=== PATIENT | female | born 1955 | race Caucasian/White ===

== ENCOUNTER 2017-05-06 09:28 | Emergency (ER) | payer OTHER ==
[2017-05-06] MEDS ORDERED: ACETAMINOPHEN 325 MG TABLET PO ONE (10:06)
--- NOTE | 2017-05-06 10:20 | ER Document Report ---
ED Medical Screen (RME) - General Chief Complaint: Fall Injury Stated Complaint: FALL/RIGHT SIDE PAIN Time Seen by Provider: 05/06/17 10:05 Mode of Arrival: Wheelchair Information source: Patient TRAVEL OUTSIDE OF THE [place] IN LAST 30 DAYS: No - HPI Patient complains to provider of: fall last night Notes: 05/06/17 10:16 Pt. fell last night striking her chest on oak table and hitting right knee and left foot. No LOC. No head trauma. - Related Data Allergies/Adverse Reactions: Penicillins Allergy (Verified 05/06/17 09:29) Physical Exam - Vital signs Vitals: Temp Pulse Resp BP Pulse Ox 97.5 F 68 16 131/80 H 95 05/06/17 09:35 05/06/17 09:35 05/06/17 09:35 05/06/17 09:35 05/06/17 09:35 - Notes Notes: Pt. has contusions on both breasts and tenderness to her sternum worse with palpation or deep inspiration. Her right knee is swollen and erythematous and contused. Course - Vital Signs Vital signs: Temp Pulse Resp BP Pulse Ox 97.5 F 68 16 131/80 H 95 05/06/17 09:35 05/06/17 09:35 05/06/17 09:35 05/06/17 09:35 05/06/17 09:35
[2017-05-06 10:43] LABS: ABSOLUTE BASOPHILS # (AUTO) 0.1 10^3/uL (0.0-0.2); ABSOLUTE EOSINOPHILS # (AUTO) 0.2 10^3/uL (0.0-0.6); ABSOLUTE LYMPHOCYTES (AUTO) 2.2 10^3/uL (0.5-4.7); ABSOLUTE MONOCYTES (AUTO) 0.6 10^3/uL (0.1-1.4); BASOPHILS % (AUTO) 0.7 % (0-2); EOSINOPHILS % (AUTO) 2.1 % (0-6); HEMATOCRIT 46.7 % (36.0-47.0); HEMOGLOBIN 15.6 g/dL (12.0-15.5); LYMPHOCYTES % (AUTO) 27.4 % (13-45); MEAN CORPUSCULAR HEMOGLOBIN 30.7 pg (27.0-33.4); MEAN CORPUSCULAR HGB CONC 33.3 g/dL (32.0-36.0); MEAN CORPUSCULAR VOLUME 92 fl (80-97); MONOCYTES % (AUTO) 7.9 % (3-13); PLATELET COUNT 332 10^3/uL (150-450); RED BLOOD COUNT 5.07 10^6/uL (3.72-5.28); RED CELL DISTRIBUTION WIDTH 14.7 % (11.5-14.0); SEGMENTED NEUTROPHILS % (AUTO) 61.9 % (42-78); TOTAL CELLS COUNTED % (AUTO) 100 %; WHITE BLOOD COUNT 8.1 10^3/uL (4.0-10.5)
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
[2017-05-06 11:01] LABS: ANION GAP 11 (5-19); BLOOD UREA NITROGEN 14 mg/dL (7-20); CALCIUM 9.8 mg/dL (8.4-10.2); CARBON DIOXIDE 28 mmol/L (22-30); CHLORIDE 107 mmol/L (98-107); GLUCOSE 95 mg/dL (75-110); POTASSIUM 4.5 mmol/L (3.6-5.0); SODIUM 146.1 mmol/L (137-145)
[2017-05-06] MEDS ORDERED: OXYCODONE-ACETAMINOPHEN 5-325 MG TABLET PO ONE (11:01)
--- NOTE | 2017-05-06 11:01 | ER Document Report ---
ED Fall - General Chief Complaint: Fall Injury Stated Complaint: FALL/RIGHT SIDE PAIN Time Seen by Provider: 05/06/17 10:05 Mode of Arrival: Wheelchair Information source: Patient Notes: 61-year-old female that accidentally fell forward stepping from the kitchen to the living room down one step. She hit her chest on an oak table. She did not lose consciousness. She complains of pain across her anterior chest as well as her right knee and left foot. She denies any nausea, vomiting, abdominal pain, back pain, and states very mild shortness of breath when she takes a deep breath. Patient does not take blood thinning medications. She denies any lightheadedness or dizziness causing the fall. TRAVEL OUTSIDE OF THE [place] IN LAST 30 DAYS: No - HPI Occurred: Just prior to arrival Where: Home Associated symptoms: None Location of injury/pain: Other - See above Quality of pain: Achy Severity: Mild Pain Level: 1 Prehospital interventions: No: C-collar, Backboard - Related data Allergies/Adverse Reactions: Penicillins Allergy (Verified 05/06/17 09:29) Past Medical History - General Information source: Patient - Social History Smoking Status: Former Smoker Chew tobacco use (# tins/day): No Smoking Education Provided: No Frequency of alcohol use: Rare Drug Abuse: None Family History: Reviewed & Not Pertinent Patient has suicidal ideation: No Patient has homicidal ideation: No Pulmonary Medical History: Reports: Hx Asthma Renal/ Medical History: Denies: Hx Peritoneal Dialysis Past Surgical History: Reports: Hx Orthopedic Surgery - rt ankle Review of Systems - Review of Systems Constitutional: denies: Fever Cardiovascular: denies: Dizziness, Lightheaded Respiratory: denies: Cough Gastrointestinal: denies: Abdomen distended, Abdominal pain Musculoskeletal: Joint pain. denies: Neck pain Hematologic/Lymphatic: denies: Anemia, Blood clots Neurological/Psychological: denies: Headaches -: Yes All other systems reviewed and negative Physical Exam - Vital signs Vitals: Temp Pulse Resp BP Pulse Ox 97.5 F 68 16 131/80 H 95 05/06/17 09:35 05/06/17 09:35 05/06/17 09:35 05/06/17 09:35 05/06/17 09:35 Notes: Reviewed vital signs and nursing note as charted by RN. CONSTITUTIONAL: Alert and oriented and responds appropriately to questions. Well -appearing; well-nourished HEAD: Normocephalic; atraumatic EYES: PERRL ENT: Normal nose; no rhinorrhea; moist mucous membranes; pharynx without lesions noted NECK: Supple without meningismus; non-tender CARD: Regular rate and rhythm; no murmurs RESP: Normal chest excursion without splinting or tachypnea; breath sounds clear and equal bilaterally; patient has some bruising across the chest wall without any obvious crepitus or flail chest present ABD/GI: Normal bowel sounds; non-distended; soft, non-tender; no bruising; no palpable masses BACK: The back appears normal and is non-tender to palpation EXT: Normal ROM in all joints; patient does have some tenderness and bruising to the right knee and the plantar aspect of the left foot SKIN: Normal color for age and race; warm; no acute lesions noted NEURO: CN II through XII are intact. Moves all extremities equally; Motor and sensory function intact PSYCH: The patient's mood and manner are appropriate. Grooming and personal hygiene are appropriate. Course - Re-evaluation Re-evalutation: 05/06/17 10:59 Given the above history and physical, the patient's age, we will obtain basic labs as well as a CT of the chest wall to evaluate for fractures, pneumothorax, or hemothorax, as well as an x-ray of the right knee in the left foot. I do not believe any other imaging or laboratory work is necessary at this time. 05/06/17 12:22 CTA shows no obvious pulmonary contusions, pneumothoraces, or displaced rib fractures. X-ray of the right knee shows no fractures. X-ray of the left foot shows a very minimally nondisplaced fracture of the distal phalanx of the left great toe. No widening of the interspace between the first and second digits of the left foot. I will place the patient in a postop shoe and discharge the patient with strict return precautions and follow-up with orthopedics. - Vital Signs Vital signs: Temp Pulse Resp BP Pulse Ox 97.5 F 68 16 131/80 H 95 05/06/17 09:35 05/06/17 09:35 05/06/17 09:35 05/06/17 09:35 05/06/17 09:35 - Laboratory Result Diagrams: 05/06/17 10:30 05/06/17 10:30 Laboratory results interpreted by me: 05/06/17 05/06/17 10:30 10:30 Hgb 15.6 H RDW 14.7 H Sodium 146.1 H Est GFR (Non-Af Amer) 58 L Discharge - Discharge Clinical Impression: Fracture of left great toe Qualifiers: Encounter type: initial encounter Fracture type: closed Phalanx: distal Fracture alignment: nondisplaced Qualified Code(s): S92.425A - Nondisplaced fracture of distal phalanx of left great toe, initial encounter for closed fracture Chest wall contusion Qualifiers: Encounter type: initial encounter Laterality: unspecified laterality Qualified Code(s): S20.219A - Contusion of unspecified front wall of thorax, initial encounter Contusion of right knee Qualifiers: Encounter type: initial encounter Qualified Code(s): S80.01XA - Contusion of right knee, initial encounter Accidental fall Qualifiers: Encounter type: initial encounter Qualified Code(s): W19.XXXA - Unspecified fall, initial encounter Condition: Good Disposition: HOME, SELF-CARE Additional Instructions: Come back immediately with any increased pain, shortness of breath, coughing or fevers, or any other acute problems. Please make sure that she follow-up with orthopedics as we have discussed. Prescriptions: Hydrocodone/Acetaminophen [[place] 5-325 Tablet] 1 each PO Q6 PRN #12 tablet PRN Reason: For Pain Referrals: KASEY ROBERTS MD [ACTIVE STAFF] - Follow up as needed
--- NOTE | 2017-05-06 12:06 | RADIOLOGY REPORT (SQ) ---
EXAM DESCRIPTION: CTA CHEST COMPLETED DATE/TIME: 05/06/2017 11:41 am REASON FOR STUDY: fall struck chest on table/chest contusion pain COMPARISON: None. TECHNIQUE: CT scan of the chest performed using helical scanning technique with dynamic intravenous contrast injection. Images reviewed with lung, soft tissue and bone windows. Reconstructed coronal and sagittal MPR images reviewed. Additional 3 dimensional post-processing performed to develop Maximal Intensity Projection images (OR P). All images stored on PACS. All CT scanners at this facility use dose modulation, iterative reconstruction, and/or weight based d osing when appropriate to reduce radiation dose to as low as reasonably achievable (ALARA). [facility]: Dose Right [facility]: CareDose [facility]: Dose Right [facility]: Teradose 4D [facility]: [employer] CONTRAST TYPE AND DOSE: contrast/concentration: Isovue 370.00 mg/ml; Total Contrast Delivered: 81.0 ml; Total Saline Delivered: 110.0 ml Contrast bolus optimized for the pulmonary arteries. Not diagnostic for the aorta. RENAL FUNCTION: BUN 14 creatinine 1.0 RADIATION DOSE: CT Rad equipment meets quality standard of care and radiation dose reduction techniq ues were employed. CTDIvol: 5.0 - 34.7 mGy. DLP: 727 mGy-cm. . LIMITATIONS: None. FINDINGS: LUNGS AND PLEURA: No masses, infiltrates, pneumothorax. No pleural effusions, calcificati ons. AORTA AND GREAT VESSELS: No aneurysm. Contrast bolus not optimized for the aorta. HEART: No pericardial effusion. No significant coronary artery calcifications. PULMONARY ARTERIES: No emboli visualized in the main pulmonary arteries or the segmental branches. HILAR AND MEDIASTINAL STRUCTURES: No identified masses or abnormal nodes. HARDWARE: None in the chest. UPPER ABDOMEN: No significant findings. Limited exam. THYROID AND OTHER SOFT TISSUES: No masses. No adenopathy. BONES: No acute or significant finding. 3D MIPS: Confirm above findings. OTHER: No other significant finding. IMPRESSION: No evidence of pulmonary embolus. COMMENT: Quality ID # [id number]: Final reports with documentation of one or more dose reduction techniques (e.g., Automated exposure control, adjustment of the mA and/or kV according to patient size, use of iterative reconstruction technique) TECHNICAL DOCUMENTATION: JOB ID: [id number] [email or web address]- All Rights Reserved
--- NOTE | 2017-05-06 12:09 | RADIOLOGY REPORT (SQ) ---
EXAM DESCRIPTION: KNEE RIGHT 3 VIEWS COMPLETED DATE/TIME: 05/06/2017 11:58 am REASON FOR STUDY: fall knee pain/swelling COMPARISON: None. NUMBER OF VIEWS: Three views. TECHNIQUE: AP, lateral, and sunrise patella radiographic images acquired of the right knee. LIMITATIONS: None. FINDINGS: MINERALIZATION: Normal. BONES: No acute fracture or dislocation. No worrisome bone lesions. JOINT: No effusion. SOFT TISSUES: No soft tissue swelling. No radio-opaque foreign body. OTHER: No other significant finding. IMPRESSION: NEGATIVE STUDY OF THE RIGHT KNEE. NO RADIOGRAPHIC EVIDENCE OF ACUTE INJURY. TECHNICAL DOCUMENTATION: JOB ID: [id number] [email or web address]- All Rights Reserved
--- NOTE | 2017-05-06 12:16 | RADIOLOGY REPORT (SQ) ---
EXAM DESCRIPTION: FOOT LEFT COMPLETE COMPLETED DATE/TIME: 05/06/2017 11:58 am REASON FOR STUDY: fall COMPARISON: None. NUMBER OF VIEWS: Three views. TECHNIQUE: AP, lateral and oblique radiographic images acquired of the left foot. LIMITATIONS: None. FINDINGS: MINERALIZATION: Normal. BONES: Nondisplaced fracture of the lateral margin of the base of the distal 1st phalanx. JOINTS: Lisfranc joints are intact. SOFT TISSUES: No soft tissue swelling. No foreign body. OTHER: No other significant finding. IMPRESSION: Nondisplaced fracture distal 1st phalanx. TECHNICAL DOCUMENTATION: JOB ID: [id number] [employer]- All Rights Reserved
[2017-05-06 12:53] VITALS: BP 129/65
--- NOTE | 2017-05-06 17:32 | EKG REPORT ---
SEVERITY:- BORDERLINE ECG - SINUS RHYTHM BORDERLINE T ABNORMALITIES, DIFFUSE LEADS : Confirmed by: Rich Decker MD 06-May-2017 17:31:27
== END 2017-05-06 12:53 | disposition home or self-care (01) ==
LOC: ER 09:28
DX: S92.425A Nondisplaced fracture of distal phalanx of left great toe, initial encounter for closed fracture (principal); S20.219A Contusion of unspecified front wall of thorax, initial encounter; S80.01XA Contusion of right knee, initial encounter; W17.89XA Other fall from one level to another, initial encounter; Y92.000 Kitchen of unspecified non-institutional (private) residence as the place of occurrence of the external cause; Z88.0 Allergy status to penicillin; Z87.891 Personal history of nicotine dependence
CPT/HCPCS: 36415; 71275; 80048; 85025; 93005; 93010; 99284

== ENCOUNTER 2017-08-07 10:49 | Emergency (ER) | payer OTHER ==
[2017-08-07] MEDS ORDERED: ASPIRIN 81 MG TABLET, CHEWABLE PO ONE (11:07)
--- NOTE | 2017-08-07 11:10 | ER Document Report ---
ED Medical Screen (RME) - General Chief Complaint: Hand Swelling Stated Complaint: HAND SWELLING Time Seen by Provider: 08/07/17 11:01 Notes: RAPID MEDICAL EVALUATION DISCLOSURE I have seen this patient as part of a Rapid Medical Evaluation and, if applicable, placed any initially appropriate orders. The patient will be seen and fully evaluated, including a full history and physical exam, by a provider ( in Main ED or Fast Track) when a room becomes available. 61-year-old female here with complaints of bilateral feet swelling ongoing for the past 1 month. Over the past few days, she has also started to have bilateral hand swelling pain and itching as well as chest pain/shortness of breath. Chest pain has been intermittent. She has not noted anything that makes the pain better or worse. She has a shortness of breath at rest however does not know if it is worse with exertion because "I have not been walking over the past few days". She has not tried taking anything for the chest pain or shortness of breath. She has been using Benadryl and Aveeno for her hands. EXAM Clear to auscultation bilaterally Minimal erythema to the bilateral palms TRAVEL OUTSIDE OF THE [place] IN LAST 30 DAYS: No - Related Data Allergies/Adverse Reactions: Penicillins Allergy (Verified 08/07/17 11:03) Past Medical History Pulmonary Medical History: Reports: Hx Asthma Renal/ Medical History: Denies: Hx Peritoneal Dialysis Past Surgical History: Reports: Hx Orthopedic Surgery - rt ankle Physical Exam - Vital signs Vitals: Temp Pulse Resp BP Pulse Ox 98.4 F 64 18 114/74 93 08/07/17 11:00 08/07/17 11:00 08/07/17 11:08/07/17 11:08/07/17 11:00 Course - Vital Signs Vital signs: Temp Pulse Resp BP Pulse Ox 98.4 F 64 18 114/74 93 08/07/17 11:00 08/07/17 11:00 08/07/17 11:00 08/07/17 11:00 08/07/17 11:00
[2017-08-07 11:41] LABS: ABSOLUTE EOSINOPHILS # (AUTO) 0.1 10^3/uL (0.0-0.6); ABSOLUTE LYMPHOCYTES (AUTO) 1.8 10^3/uL (0.5-4.7); ABSOLUTE MONOCYTES (AUTO) 0.5 10^3/uL (0.1-1.4); ABSOLUTE NEUT (AUTO) 3.9 10^3/uL (1.7-8.2); BASOPHILS % (AUTO) 0.7 % (0-2); EOSINOPHILS % (AUTO) 1.4 % (0-6); HEMATOCRIT 42.8 % (36.0-47.0); HEMOGLOBIN 14.4 g/dL (12.0-15.5); LYMPHOCYTES % (AUTO) 28.6 % (13-45); MEAN CORPUSCULAR HEMOGLOBIN 30.8 pg (27.0-33.4); MEAN CORPUSCULAR HGB CONC 33.7 g/dL (32.0-36.0); MEAN CORPUSCULAR VOLUME 91 fl (80-97); MONOCYTES % (AUTO) 8.5 % (3-13); PLATELET COUNT 303 10^3/uL (150-450); RED BLOOD COUNT 4.69 10^6/uL (3.72-5.28); RED CELL DISTRIBUTION WIDTH 13.5 % (11.5-14.0); SEGMENTED NEUTROPHILS % (AUTO) 60.8 % (42-78); TOTAL CELLS COUNTED % (AUTO) 100 %; WHITE BLOOD COUNT 6.4 10^3/uL (4.0-10.5)
[2017-08-07] MEDS ORDERED: PROMETHAZINE HCL 25 MG TABLET PO ONE (11:43)
[2017-08-07] MEDS ORDERED: OXYCODONE HCL IR 5 MG TABLET PO ONE (11:43)
--- NOTE | 2017-08-07 11:46 | ER Document Report ---
ED General - General Chief Complaint: Hand Swelling Stated Complaint: HAND SWELLING Time Seen by Provider: 08/07/17 11:01 Mode of Arrival: Ambulatory Information source: Patient Notes: This is a 61-year-old female with a history of fibromyalgia, asthma, obstructive sleep apnea, hypothyroidism who presents to the emergency room with bilateral pain and swelling of the hands and feet, some nausea, shortness of breath. Patient has had all of these symptoms in the past and has had workups with cardiology, pulmonary and rheumatology through the [facility]. She has also been seen in pain management and states that the only medicines out of help these symptoms have been oxycodone but she has not been on it for the past few months. She states she last was evaluated by pain management 6 months ago. She does have an appointment with her primary care physician at the [facility] on Monday. She was unable to get through to the office today so came to the ER. She denies fever, cough, chest pain, abdominal pain. TRAVEL OUTSIDE OF THE [place] IN LAST 30 DAYS: No - HPI Onset: Last week Onset/Duration: Gradual Quality of pain: Dull Severity: Moderate Pain Level: 2 Associated symptoms: denies: Chest pain, Fever, Shortness of breath Exacerbated by: Denies Relieved by: Denies Similar symptoms previously: Yes Recently seen / treated by doctor: Yes - Related Data Allergies/Adverse Reactions: Penicillins Allergy (Verified 08/07/17 11:03) Past Medical History - General Information source: Patient - Social History Smoking Status: Never Smoker Cigarette use (# per day): No Chew tobacco use (# tins/day): No Frequency of alcohol use: None Drug Abuse: None Lives with: Family Family History: Reviewed & Not Pertinent Patient has suicidal ideation: No Patient has homicidal ideation: No Pulmonary Medical History: Reports: Hx Asthma Renal/ Medical History: Denies: Hx Peritoneal Dialysis Past Surgical History: Reports: Hx Orthopedic Surgery - rt ankle Review of Systems - Review of Systems Constitutional: denies: Chills, Fever EENT: No symptoms reported Cardiovascular: No symptoms reported Respiratory: No symptoms reported Gastrointestinal: No symptoms reported Genitourinary: No symptoms reported Female Genitourinary: No symptoms reported Musculoskeletal: See HPI Skin: No symptoms reported Hematologic/Lymphatic: No symptoms reported Neurological/Psychological: No symptoms reported Physical Exam - Vital signs Vitals: Temp Pulse Resp BP Pulse Ox 98.4 F 64 18 114/74 93 08/07/17 11:00 08/07/17 11:00 08/07/17 11:00 08/07/17 11:00 08/07/17 11:00 Notes: Physical exam: GENERAL: 81-year-old female, alert and oriented 3, no acute distress HEAD: Atraumatic, normocephalic. EYES: Pupils equal round and reactive to light, extraocular movements intact, sclera anicteric, conjunctiva are normal. ENT: TMs normal, nares patent, oropharynx clear without exudates. Moist mucous membranes. NECK: Normal range of motion, supple without obvious mass or JVD. LUNGS: Breath sounds clear to auscultation bilaterally and equal. No wheezes rales or rhonchi. HEART: Regular rate and rhythm without murmurs, rubs or gallops. ABDOMEN: Soft, normoactive bowel sounds. No tenderness to palpation. No guarding, no rebound. No masses appreciated. EXTREMITIES: She has mild palmar erythema to both hands. There is no swelling of any of the joints and the wrists or feet. There is no significant edema of the extremities. Distal cap refill and pulses are good. NEUROLOGICAL: Cranial nerves II through XII grossly intact. Normal speech, moving all extremities. PSYCH: Normal mood, normal affect. SKIN: Warm, Dry, normal turgor, no rashes or lesions noted. Course - Re-evaluation Re-evalutation: 08/07/17 14:35 Note: Patient's labs and chest x-ray looked good. Her vital signs have been good. She does complain of bilateral hand and feet pain with itching. She does states she gets exacerbations of these and has been fully worked up by field marketing associate. She does have a history of fibromyalgia. She states she has been checked for lupus and the "results were inconclusive". I have offered her a trial dose of prednisone but she has had that in the past and states it does not do anything. I will treat her symptomatically for her pain and have her follow-up with her primary care doctor in 2 days. I have offered her gabapentin and Lyrica which she states did not work for her. - Vital Signs Vital signs: Temp Pulse Resp BP Pulse Ox 97.7 F 60 16 129/78 H 99 08/07/17 14:52 08/07/17 14:52 08/07/17 14:52 08/07/17 14:52 08/07/17 14:52 - Laboratory Result Diagrams: 08/07/17 11:24 08/07/17 11:24 Laboratory results interpreted by me: 08/07/17 11:24 Sodium 145.1 H Chloride 108 H - Diagnostic Test Radiology reviewed: Image reviewed, Reports reviewed - Chest x-ray shows no infiltrates - EKG Interpretation by Me Rate: Normal Rhythm: NSR - EKG shows normal sinus rhythm with a ventricular rate of 64, no acute ST-T wave changes Discharge - Discharge Clinical Impression: Joint pain Condition: Stable Disposition: HOME, SELF-CARE Additional Instructions: Thank you for choosing [facility] for your care. The examination and treatment you have received in the Emergency Department today has been rendered on an emergency basis only and is not intended to be a substitute for complete medical care. You should contact your doctor as it is important that she/he examine you for any new or remaining problems. If given a copy of any lab tests or radiology reports, please bring them with you when you see your physician. If your problem worsens or new symptoms appear and you are unable to arrange prompt follow-up care, return to the Emergency Department. Specific signs to look out for: Worsening pain, worsening joint swelling, worsening shortness of breath or any concerns or getting worse. Any other instructions: I would like you to follow-up with your primary care doctor on Monday as planned. Bring a copy of today's lab work with you when you go. The pain medicine you're taking prescribed as a narcotic. There are several important things you should know about this medicine: 1. Taking narcotics for too long can lead to physical and mental dependence. Take this medicine only if really needed and in the lowest quantity to achieve pain relief. 2. Do not drink alcohol while on this medicine. Alcohol interacts with narcotics and the combination can be dangerous. 3. Do not drive or operate machinery while on this medicine. 4. Narcotics do cause constipation, so drink plenty of fluids and daily stool softeners. Prescriptions: Hydroxyzine HCl 50 mg PO Q6HP PRN #20 tablet PRN Reason: Hydromorphone HCl [Dilaudid 2 Mg Tablet] 2 mg PO Q6H PRN #20 tablet PRN Reason: for pain
[2017-08-07 11:53] LABS: ALANINE AMINOTRANSFERASE 31 U/L (9-52); ALKALINE PHOSPHATASE 68 U/L (38-126); ANION GAP 8 (5-19); ASPARTATE AMINO TRANSFERASE 30 U/L (14-36); BILIRUBIN,DIRECT 0.3 mg/dL (0.0-0.4); BILIRUBIN,TOTAL 0.3 mg/dL (0.2-1.3); BLOOD UREA NITROGEN 12 mg/dL (7-20); CALCIUM 9.4 mg/dL (8.4-10.2); CARBON DIOXIDE 29 mmol/L (22-30); CHLORIDE 108 mmol/L (98-107); GLUCOSE 94 mg/dL (75-110); POTASSIUM 4.2 mmol/L (3.6-5.0); SODIUM 145.1 mmol/L (137-145); TOTAL PROTEIN 7.2 g/dL (6.3-8.2)
[2017-08-07 12:06] LABS: NT PRO BNP 68 pg/mL (5-900)
[2017-08-07 12:07] LABS: TROPONIN I < 0.012 ng/mL
--- NOTE | 2017-08-07 14:10 | EKG REPORT ---
SEVERITY:- BORDERLINE ECG - SINUS RHYTHM BORDERLINE T ABNORMALITIES, INFERIOR LEADS : Confirmed by: Rich Decker MD 07-Aug-2017 14:09:13
[2017-08-07] MEDS ORDERED: HYDROXYZINE PAMOATE 50 MG CAPSULE PO ONE (14:54)
[2017-08-07 15:49] VITALS: BP 129/78
--- NOTE | 2017-08-08 15:14 | RADIOLOGY REPORT (SQ) ---
EXAM DESCRIPTION: CHEST 2 VIEWS COMPLETED DATE/TIME: 08/07/2017 11:35 am REASON FOR STUDY: SOB CP COMPARISON: None. EXAM PARAMETERS: NUMBER OF VIEWS: Two view. TECHNIQUE: Frontal and lateral radiographic views of the chest acquired. RADIATION DOSE: N/A LIMITATIONS: None. FINDINGS: LUNGS AND PLEURA: No opacities, masses or pneumothorax. No pleural effusion. MEDIASTINUM AND HILAR STRUCTURES: No masses. No contour abnormalities. HEART AND VASCULAR STRUCTURES: Heart normal in size and contour. No evidence for failure. BONES: No acute findings. HARDWARE: None. OTHER: No other significant finding. IMPRESSION: NO SIGNIFICANT RADIOGRAPHIC FINDING IN THE CHEST. TECHNICAL DOCUMENTATION: JOB ID: [id number] [email or web address]- All Rights Reserved Reading location - IP/workstation name: [email or web address]
== END 2017-08-07 15:00 | disposition home or self-care (01) ==
LOC: ER 10:49
DX: M25.50 Pain in unspecified joint (principal); M79.89 Other specified soft tissue disorders; M79.671 Pain in right foot; M79.672 Pain in left foot; M79.641 Pain in right hand; M79.642 Pain in left hand; L29.9 Pruritus, unspecified; J45.909 Unspecified asthma, uncomplicated; Z88.0 Allergy status to penicillin
CPT/HCPCS: 36415; 71046; 80053; 83880; 84484; 85025; 93005; 93010; 99284